=== PATIENT | male | born 1960 | race Caucasian/White ===

== ENCOUNTER 2017-12-22 00:27 | Emergency (ER) | payer OTHER ==
[~2017-12-22] VITALS: Ht 188 cm; Wt 122.5 kg
[2017-12-22 00:42] VITALS: BP 113/60
--- NOTE | 2017-12-22 00:45 | NUR ---
PATIENT AMBULATED TO ER BED 1.
--- NOTE | 2017-12-22 00:47 | NUR ---
PATIENT IS A 57 Y/O MALE WHO PRESENTS TO THE ED C/O COUGH. PT STATES THAT HE HAS BEEN COUGHING FOR X2 WEEK TAKING NYQUIL WITH NO RELIEF. PT REPORTS 7/10 ACHING CHEST PAIN THAT DOES NOT RADIATE. PT DENIES SOB, NOTED COUGH NON-PRODUCTIVE. PT AAOX4, RR EVEN/UNLABORED. PT REPOSITIONED FOR COMFORT, BED IN LOWEST POSITION. ER MD DR. DACOSTA NOTIFIED. WILL CONTINUE TO MONITOR.
[2017-12-22] MEDS ORDERED: ALBUTEROL 0.083% 2.5 MG/3 ML NEBU INH ONE (01:05)
[2017-12-22] MEDS ORDERED: predniSONE 20 MG TAB PO ONE (01:05)
[2017-12-22] MEDS ORDERED: ALBUTEROL SULFATE/IPRATROPIU 3 ML SOL IH ONE (01:05)
--- NOTE | 2017-12-22 01:10 | NUR ---
RT AT BEDSIDE FOR INTERVENTION.
[2017-12-22 01:37] VITALS: BP 125/75
--- NOTE | 2017-12-22 01:37 | NUR ---
Patient discharged with v/s stable. Written and verbal after care instructions given and explained. Patient alert, oriented and verbalized understanding of instructions. Ambulatory with steady gait. All questions addressed prior to discharge. ID band removed. Patient advised to follow up with PMD. Rx of MOTRIN 800MG AND PREDNISONE 20MG given. Patient educated on indication of medication including possible reaction and side effects. Opportunity to ask questions provided and answered.
== END 2017-12-22 01:37 | disposition home or self-care (01) ==
LOC: MED 00:27
DX: J02.9 Acute pharyngitis, unspecified (principal); E11.9 Type 2 diabetes mellitus without complications
CPT/HCPCS: 99283; J7512; J7613; J7620

== ENCOUNTER 2018-01-04 00:44 | Emergency (ER) | payer OTHER ==
[~2018-01-04] VITALS: Ht 188 cm; Wt 122.0 kg
[2018-01-04 01:05] VITALS: BP 147/71
--- NOTE | 2018-01-04 01:05 | NUR ---
PATIENT TRIAGED AND SENT TO ER LOBBY.
--- NOTE | 2018-01-04 02:46 | NUR ---
Citlali coffman in [facility] - 01/04/18 at 0246 by [email or web address] PATIENT BIB WHEELCHAIR TO ER BED 3.
--- NOTE | 2018-01-04 02:50 | NUR ---
PATIENT PRESENTS TO ED WITH COUGH X3 WEEKS WITH BURNING PAIN 3/10 WHEN COUGHING. COUGH IS NON PRODUCTIVE. PT AFEBRILE. PT DENIES N/V/D; SKIN IS PINK/WARM/DRY; AAOX4 WITH EVEN AND STEADY GAIT; LUNGS CLEAR BL; HR EVEN AND REGULAR; PT DENIES ANY FEVER, CP, SOB, OR COUGH AT THIS TIME; PATIENT STATES PAIN OF 0/10 AT THIS TIME; VSS; PATIENT POSITIONED FOR COMFORT; HOB ELEVATED; BEDRAILS UP X2; BED DOWN. ER MD MADE AWARE OF PT STATUS. CONTINUE TO MONITOR.
--- NOTE | 2018-01-04 02:52 | NUR ---
PATIENT AMBULATED TO ER BED 4.
[2018-01-04 03:57] VITALS: BP 147/71
--- NOTE | 2018-01-04 04:03 | NUR ---
Patient discharged with v/s stable. Written and verbal after care instructions given and explained. Patient verbalized understanding. Ambulatory with steady gait. Perscription of Zofran given. All questions addressed prior to discharge. Advised to follow up with PMD.
== END 2018-01-04 04:03 | disposition home or self-care (01) ==
LOC: MED 00:44
DX: R05 Cough (principal); E11.9 Type 2 diabetes mellitus without complications
CPT/HCPCS: 71046; 99284

== ENCOUNTER 2020-02-29 10:32 | Emergency (ER) | payer OTHER ==
[~2020-02-29] VITALS: Ht 190.5 cm; Wt 122.5 kg
[2020-02-29 10:42] VITALS: BP 137/74
--- NOTE | 2020-02-29 11:06 | NUR ---
AMBULATED TO BED 7
--- NOTE | 2020-02-29 11:47 | NUR ---
DR TREVINO AT BEDSIDE
[2020-02-29] MEDS ORDERED: KETOROLAC 60 MG/2 ML VIAL IM ONE (11:55)
--- NOTE | 2020-02-29 12:02 | NUR ---
TORADOL IM ADMINISTERED
--- NOTE | 2020-02-29 12:03 | NUR ---
c/o posterior neck pain 9/10 radiating to right trapezius and onto right sided anterior chest wall x 1 month. described as sharp pain x 1 month----worse at night. pt states pain is also worse with rom to r arm. +cms. ambulatory with steady gait. hx---asthma, hyperlipidemia, dm, htn rx---albuterol, zocor, insulin and metformin, benazepril
--- NOTE | 2020-02-29 12:20 | NUR ---
lab at bedside
[2020-02-29 12:28] LABS: BASOPHILS # (AUTO) 0.1 K/uL (0.00-0.22); BASOPHILS % (AUTO) 0.9 % (0.0-2.0); EOSINOPHILS # (AUTO) 0.1 K/uL (0-0.4); EOSINOPHILS % (AUTO) 1.2 % (0.0-4.0); HEMATOCRIT 40.1 % (36-52); HEMOGLOBIN 13.3 g/dL (12.0-18.0); LYMPHOCYTES # (AUTO) 1.9 K/uL (2.0-11.5); MEAN CORPUSCULAR HEMOGLOBIN 31 pg (27-31); MEAN CORPUSCULAR HGB CONC 33 g/dL (33-37); MEAN CORPUSCULAR VOLUME 92.2 fL (80-94); MONOCYTES # (AUTO) 0.5 K/uL (0.8-1.0); MONOCYTES % (AUTO) 7.3 % (1.7-9.3); NEUTROPHILS # (AUTO) 3.8 K/uL (1.8-7.7); NEUTROPHILS % (AUTO) 60.6 % (42.2-75.2); PLATELET COUNT (AUTO) 339 K/uL (140-450); RED BLOOD CELL COUNT(AUTO) 4.35 MIL/uL (4.20-6.10); RED CELL DISTRIBUTION WIDTH 14.2 % (11.6-13.7); WHITE BLOOD COUNT (AUTO) 6.3 K/uL (4.8-10.8)
[2020-02-29 12:39] LABS: ANION GAP 11.4 (8-16); CARBON DIOXIDE 27.7 mmol/L (21-32); POTASSIUM 4.1 mmol/L (3.5-5.1)
--- NOTE | 2020-02-29 14:10 | NUR ---
NADR, PAIN 12/17
[2020-02-29 14:15] VITALS: BP 143/72
--- NOTE | 2020-02-29 14:15 | NUR ---
Patient discharged with v/s stable. Written and verbal after care instructions given and explained REGARDING CERVICAL SPRAIN. Patient alert, oriented and verbalized understanding of instructions. Ambulatory with steady gait. All questions addressed prior to discharge. ID band removed. Patient advised to follow up with PMD. Rx of FLEXERIL AND NAPROSYN given. Patient educated on indication of medication including possible reaction and side effects. Opportunity to ask questions provided and answered.
== END 2020-02-29 14:15 | disposition home or self-care (01) ==
LOC: MED 10:32
DX: S13.8XXA Sprain of joints and ligaments of other parts of neck, initial encounter (principal); X58.XXXA Exposure to other specified factors, initial encounter; E11.9 Type 2 diabetes mellitus without complications; Y93.89 Activity, other specified; Y92.89 Other specified places as the place of occurrence of the external cause; Y99.8 Other external cause status; R07.9 Chest pain, unspecified
CPT/HCPCS: 36415; 71045; 80048; 84484; 85025; 93005; 96372; 99285; J1885; Q0092

== ENCOUNTER 2022-01-29 09:33 | Emergency (ER) | payer OTHER ==
[~2022-01-29] VITALS: Ht 188 cm; Wt 122.5 kg
[2022-01-29 09:46] VITALS: BP 114/84
--- NOTE | 2022-01-29 10:15 | NUR ---
61 y/o male, c/o productive cough, cp and sob for 1 month. denies nausea, vomiting, diarrhea. skin is pink/warm/dry. a&o x4 with even and steady gait. lungs wheezing bl, heart rate even and regular. pt denies anyone sick in the household with the same symptoms. pt states pain is 1/10 at this time, cp only with cough exertion, hacking cough. patient positioned for comfort. hob elevated. bed down. ermd made aware of pt. pmh: dm2, asthma, htn, hld nka
[2022-01-29] MEDS ORDERED: ALBUTEROL SULFATE/IPRATROPIU 3 ML SOL IH ONE (11:00)
[2022-01-29] MEDS ORDERED: PRED10TA5 PO (11:34)
[2022-01-29] MEDS ORDERED: PROM118S5 PO (11:34)
[2022-01-29] MEDS ORDERED: ALBU0.0912 IH (12:05)
--- NOTE | 2022-01-29 12:15 | NUR ---
Patient discharged with v/s stable. Written and verbal after care instructions given and explained. Patient alert, oriented and verbalized understanding of instructions. Ambulatory with steady gait. All questions addressed prior to discharge. ID band removed. Patient advised to follow up with PMD. Rx of prednisone, promethazine, albuterol(sent) given. Patient educated on indication of medication including possible reaction and side effects. Opportunity to ask questions provided and answered.
[2022-01-29 12:17] VITALS: BP 114/84
== END 2022-01-29 12:15 | disposition home or self-care (01) ==
LOC: MED 09:33
DX: J45.909 Unspecified asthma, uncomplicated (principal); E11.9 Type 2 diabetes mellitus without complications; I10 Essential (primary) hypertension; Z79.899 Other long term (current) drug therapy
CPT/HCPCS: 71045; 94640; 99283